=== PATIENT | male | born 1990 | race Caucasian/White ===

== ENCOUNTER 2017-02-17 11:32 | Inpatient (IN) | payer OTHER ==
[2017-02-17 12:06] VITALS: BMI 31.8
--- NOTE | 2017-02-17 16:31 | HP ---
COWS - Scale Resting Pulse: 0= [place] 80 or Below Sweatin= Chills/Flushing Restless Observation: 3= Extraneous Movement Pupil Size: 0= Normal to Room Light Bone or Joint Aches: 2= Severe Diffuse Aches Runny Nose/ Eye Tearin= Runny Nose/Eyes GI Upset > 30mins: 1= Stomach Cramp Tremor Observation: 2= Slight Tremor Visible Yawning Observation: 0= None Anxiety or Irritability: 2=Irritable/Anxious Goose Flesh Skin: 0=Smooth Skin COWS Score: 13 CIWA Score - CIWA Score Nausea/Vomitin-No Nausea/No Vomiting Muscle Tremors: 4-Moderate,w/Arms Extend Anxiety: 4-Mod. Anxious/Guarded Agitation: 4-Moderately Restless Paroxysmal Sweats: 1-Minimal Palms Moist Orientation: 1-Uncertain about Date Tacttile Disturbances: 0-None Auditory Disturbances: 0-None Visual Disturbances: 0-None Headache: 0-None Present CIWA-Ar Total Score: 14 Admission ROS S - HPI Chief Complaint: withdrawal sx Allergies/Adverse Reactions: Allergies Allergy/AdvReac Type Severity Reaction Status Date / Time erythromycin base Allergy Severe Difficulty Verified 02/17/17 16:46 Breathing History of Present Illness: 27 years old male with long history of alcohol heroin nicotine dependence denies medical and mental issue is admitted to detox Exam Limitations: No Limitations - Ebola screening Have you traveled outside of the country in the last 21 days: No Have you had contact with anyone from an Ebola affected area: No Have you been sick,other than usual withdrawal symptoms: No Do you have a fever: No - Review of Systems Constitutional: Chills, Weight Stable EENT: reports: No Symptoms Reported Respiratory: reports: No Symptoms reported Cardiac: reports: No Symptoms Reported GI: reports: Poor Fluid Intake, Abdominal cramping : reports: No Symptoms Reported Musculoskeletal: reports: Back Pain, Joint Pain, Muscle Pain, Neck Pain Integumentary: reports: Change in Color (both hands) Neuro: reports: Tremors Endocrine: reports: No Symptoms Reported Hematology: reports: No Symptoms Reported Psychiatric: reports: Judgement Intact, Mood/Affect Appropiate Other Systems: Reviewed and Negative Patient History - Patient Medical History Hx Anemia: No Hx Asthma: No Hx Chronic Obstructive Pulmonary Disease (COPD): Yes Hx Cancer: No Hx Cardiac Disorders: Yes (2014) Hx Congestive Heart Failure: Yes (as per hx 1x 2 days under obs after tainted heroin intake ) Hx Hypertension: No Hx Hypercholesterolemia: No Hx Pacemaker: No HX Cerebrovascular Accident: No Hx Seizures: No Hx Dementia: No Hx Diabetes: No Hx Gastrointestinal Disorders: No Hx Liver Disease: No Hx Genitourinary Disorders: No Hx Sexually Transmitted Disorders: No Hx Renal Disease (ESRD): No Hx Thyroid Disease: No Hx Human Immunodeficiency Virus (HIV): No (LAST 09/17 EGATIVE) Hx Hepatitis C: No Hx Depression: No Hx Suicide Attempt: No Hx Bipolar Disorder: No Hx Schizophrenia: No - Patient Surgical History Past Surgical History: No Hx Neurologic Surgery: No Hx Cataract Extraction: No Hx Cardiac Surgery: No Hx Lung Surgery: No Hx Breast Surgery: No Hx Breast Biopsy: No Hx Abdominal Surgery: No Hx Appendectomy: No Hx Cholecystectomy: No Hx Genitourinary Surgery: No Hx Orthopedic Surgery: No - PPD History Previous Implant?: Yes Documented Results: Negative w/proof Implanted On Prior R Admission?: Yes Date: 02/19/16 Results: 0 MM PPD to be Administered?: Yes - Smoking Cessation Smoking history: Current every day smoker Have you smoked in the past 12 months: Yes Aproximately how many cigarettes per day: 60 Cigars Per Day: 0 Hx Chewing Tobacco Use: No Initiated information on smoking cessation: Yes 'Breaking Loose' booklet given: 02/17/17 - Substance & Tx. History Hx Alcohol Use: Yes Hx Substance Use: Yes Substance Use Type: Alcohol, Heroin, Tranquilizers Hx Substance Use Treatment: Yes (02/16-02/20/16) - Substances Abused Alcohol Route: Oral Frequency: Daily Amount used: 40ozx6+pint scotch Age of first use: 13 Date of Last Use: 02/16/17 Heroin Route: Injection Frequency: Daily Amount used: 10 bags Age of first use: 24 Date of Last Use: 02/17/17 Family Disease History - Family Disease History Family History: Denies Family Disease History: Other: Grandparent (MATERNAL GRAND FATHER-- HTN) Admission Physical Exam [facility] - Vital Signs Vital Signs: Vital Signs - 24 hr 02/17/17 12:05 Temperature 95.5 F L Pulse Rate 68 Respiratory 20 Rate Blood Pressure 144/82 - Physical General Appearance: Yes: Nourished, Appropriately Dressed, Mild Distress, Tremorous, Irritable, Sweating, Anxious HEENTM: Yes: Hearing grossly Normal, Normal ENT Inspection, Normocephalic, Normal Voice Respiratory: Yes: Chest Non-Tender, Lungs Clear, Normal Breath Sounds, No Respiratory Distress, No Accessory Muscle Use Neck: Yes: Supple, Trachea in good position Breast: Yes: Breasts Symetrical Cardiology: Yes: Regular Rhythm, Regular Rate, S1, S2 Abdominal: Yes: Normal Bowel Sounds, Non Tender, Soft Genitourinary: Yes: Within Normal Limits Back: Yes: Normal Inspection Musculoskeletal: Yes: full range of Motion, Gait Steady, Back pain, Muscle Pain Extremities: Yes: Normal Inspection (hands iv opiate), Normal Range of Motion, Non-Tender, Tremors Neurological: Yes: Alert, Motor Strength 5/5, Normal Mood/Affect, Normal Response Integumentary: Yes: Warm, Track [place] Lymphatic: Yes: Within Normal Limits - Diagnostic (1) Alcohol dependence with uncomplicated withdrawal Current Visit: Yes Status: Acute (2) Nicotine dependence Current Visit: Yes Status: Acute Qualifiers: Nicotine product type: cigarettes Substance use status: in withdrawal Qualified Code(s): F17.213 - Nicotine dependence, cigarettes, with withdrawal; F17.213 - Nicotine dependence, cigarettes, with withdrawal (3) Opioid dependence with withdrawal Current Visit: Yes Status: Acute (4) COPD (chronic obstructive pulmonary disease) Current Visit: Yes Status: Chronic Qualifiers: COPD type: emphysema Emphysema type: unilateral Qualified Code(s ): J43.0 - Unilateral pulmonary emphysema [MacLeod's syndrome]; J43.0 - Unilateral pulmonary emphysema [MacLeod's syndrome]; J43.0 - Unilateral pulmonary emphysema [MacLeod's syndrome]; J43.0 - Unilateral pulmonary emphysema [MacLeod's syndrome] Cleared for Admission [facility] - Detox or Rehab S Level of Care: Medically Managed Detox Regimen/Protocol: Methadone/Librium S Breath Alcohol Content Breath Alcohol Content: 0 Urine Drug Screen - Results Drug Screen Negative: No Urine Drug Screen Results: OPI-Opiates, BZO-Benzodiazepines
[2017-02-17] MEDS ORDERED: chlordiazePOXIDE HCL 25 MG CAPSULE PO PRN (16:38)
[2017-02-17] MEDS ORDERED: MAGNESIUM HYDROX 2400MG/30ML ORAL SUSPENSION 30 ML CUP PO PRN (16:38)
[2017-02-17] MEDS ORDERED: diphenhydrAMINE HCL 50 MG CAPSULE PO PRN (16:38)
[2017-02-17] MEDS ORDERED: P-EPHED 60MG/TRIPROLIDI 2.5MG TABLET PO PRN (16:38)
[2017-02-17] MEDS ORDERED: MAGNESIUM CITRATE 300 ML BOTTLE PO PRN (16:38)
[2017-02-17] MEDS ORDERED: guaiFENesin/D-METHORPHAN HB 10 ML UNIT-DOSE CUPS PO PRN (16:38)
[2017-02-17] MEDS ORDERED: IBUPROFEN 400 MG TABLET (FP) PO PRN (16:38)
[2017-02-17] MEDS ORDERED: MAG HYDROX/AL HYDROX/SIMETH 30 ML UNIT-DOSE CUP PO PRN (16:38)
[2017-02-17] MEDS ORDERED: METHADONE HCL 10 MG TABLET (FOR DETOX USE ONLY) PO ONE ×2 (16:38→23:00)
[2017-02-17] MEDS ORDERED: ACETAMINOPHEN 325 MG TABLET (FP) PO PRN (16:38)
[2017-02-17] MEDS ORDERED: LOPERAMIDE HCL 2 MG CAPSULE PO PRN (16:38)
[2017-02-17] MEDS ORDERED: MENTHOL/PHENOL 1 EACH UD MM PRN (16:38)
[2017-02-17] MEDS ORDERED: NICOTINE POLACRILEX 4 MG GUM BC PRN (16:38)
[2017-02-17] MEDS ORDERED: cloNIDine HCL 0.1 MG TABLET PO PRN (16:40)
[2017-02-17] MEDS ORDERED: METHADONE HCL 10 MG TABLET (FOR DETOX USE ONLY) ONE (20:26)
[2017-02-17] MEDS ORDERED: THIAMINE HCL 100 MG TABLET (FP) PO SCH (22:00)
[2017-02-17] MEDS: chlordiazePOXIDE HCL 25 MG CAPSULE PO SCH (22:38)
[2017-02-18 01:59] LABS: URINE APPEARANCE CLEAR; URINE BILIRUBIN NEGATIVE (NEGATIVE); URINE BLOOD NEGATIVE (NEGATIVE); URINE COLOR YELLOW; URINE GLUCOSE (UA) NEGATIVE (NEGATIVE); URINE KETONE NEGATIVE (NEGATIVE); URINE NITRITE NEGATIVE (NEGATIVE); URINE PROTEIN NEGATIVE (NEGATIVE); URINE UROBILINOGEN NEGATIVE mg/dL (0.2-1.0)
[2017-02-18] MEDS: chlordiazePOXIDE HCL 25 MG CAPSULE PO SCH ×3 (05:20→18:02)
[2017-02-18 09:07] LABS: URINE LEUK ESTERASE Negative (NEGATIVE)
[2017-02-18 09:58] LABS: MCH 29.5 pg (25.7-33.7); MCHC 33.6 g/dl (32.0-35.9); MEAN CELL VOLUME 87.8 fl (80-96); MEAN PLT VOLUME 10.1 fl (7.5-11.1); PLATELET COUNT 142 K/MM3 (134-434); RDW 13.3 % (11.9-15.9); WHITE BLOOD COUNT 6.4 K/mm3 (4.0-10.0)
[2017-02-18] MEDS ORDERED: NICOTINE 21 MG/24 HOURS TOPICAL PATCH TD SCH (10:00)
[2017-02-18] MEDS ORDERED: METHADONE HCL 10 MG TABLET (FOR DETOX USE ONLY) PO SCH (10:00)
[2017-02-18] MEDS ORDERED: PRENATAL VITAMINS W/ FOLIC ACID TABLET (FP) PO SCH (10:00)
[2017-02-18 10:01] LABS: ALBUMIN 3.6 g/dl (3.4-5.0); ALK PHOS 61 U/L (45-117); ANION GAP 7 (8-16); BILIRUBIN,TOTAL 0.4 mg/dL (0.2-1.0); CALCIUM 8.4 mg/dL (8.5-10.1); CO2 31 mmol/L (21-32); CREATININE 0.8 mg/dL (0.7-1.3); GLUCOSE,RANDOM 86 mg/dL (74-106); SGOT/AST 10 U/L (15-37); SGPT/ALT 27 U/L (12-78); TOT PROT 6.7 g/dl (6.4-8.2)
--- NOTE | 2017-02-18 12:30 | PN ---
[facility] CIWA - CIWA Score Nausea/Vomitin Muscle Tremors: 3 Anxiety: 4-Mod. Anxious/Guarded Agitation: 2 Paroxysmal Sweats: 3 Orientation: 0-Oriented Tacttile Disturbances: 2-Mild Itch/Numbness/Burn Auditory Disturbances: 0-None Visual Disturbances: 0-None Headache: 0-None Present CIWA-Ar Total Score: 16 [facility] COWS - Scale Resting Pulse: 1= [place] 81-100 Sweatin= Chills/Flushing Restless Observation: 1= Difficult to Sit Still Pupil Size: 0= Normal to Room Light Bone or Joint Aches: 2= Severe Diffuse Aches Runny Nose/ Eye Tearin= Nasal Congestion GI Upset > 30mins: 1= Stomach Cramp Tremor Observation of Outstretched Hands: 2= Slight Tremor Visible Yawning Observation: 1= 1-2x During Session Anxiety or Irritability: 2=Irritable/Anxious Goose Flesh Skin: 3=Piloerection COWS Score: 15 S Progress Note (SOAP) Subjective: Tremors, Sweating, Stomach Cramping, Anxious. Objective: PT. A & O X 3, OBSERVED AMBULATING ON UNIT. NO ACUTE DISTRESS. 02/18/17 12:31 Vital Signs Temperature 95.5 F L 02/18/17 09:07 Pulse Rate 81 02/18/17 09:07 Respiratory Rate 18 02/18/17 09:07 Blood Pressure 143/79 02/18/17 09:07 O2 Sat by Pulse Oximetry (%) Laboratory Tests 02/17/17 02/18/17 02/18/17 22:37 07:00 07:00 WBC 6.4 RBC 4.89 Hgb 14.4 Hct 42.9 MCV 87.8 MCH 29.5 MCHC 33.6 RDW 13.3 Plt Count 142 MPV 10.1 D Sodium 143 Potassium 4.2 Chloride 105 Carbon Dioxide 31 D Anion Gap 7 L BUN 14 Creatinine 0.8 Creat Clearance w eGFR > 60 Random Glucose 86 D Calcium 8.4 L Total Bilirubin 0.4 AST 10 L D ALT 27 Alkaline Phosphatase 61 Total Protein 6.7 Albumin 3.6 Urine Color Yellow Urine Appearance Clear Urine pH 5.0 Ur Specific [place] 1.025 Urine Protein Negative Urine Glucose (UA) Negative Urine Ketones Negative Urine Blood Negative Urine Nitrite Negative Urine Bilirubin Negative Urine Urobilinogen Negative Ur Leukocyte Esterase Negative RPR Titer 10/17/17 07:00 WBC RBC Hgb Hct MCV MCH MCHC RDW Plt Count MPV Sodium Potassium Chloride Carbon Dioxide Anion Gap BUN Creatinine Creat Clearance w eGFR Random Glucose Calcium Total Bilirubin AST ALT Alkaline Phosphatase Total Protein Albumin Urine Color Urine Appearance Urine pH Ur Specific [place] Urine Protein Urine Glucose (UA) Urine Ketones Urine Blood Urine Nitrite Urine Bilirubin Urine Urobilinogen Ur Leukocyte Esterase RPR Titer Nonreactive LABS NOTED. HCV AB RESULT PENDING. 02/18/17 12:32 Assessment: 02/18/17 12:31 WITHDRAWAL SYMPTOMS. Plan: CONTINUE DETOX.
[2017-02-18 17:28] VITALS: BP 140/83; PULSE 87; TEMP 97.2
[2017-02-18] MEDS ORDERED: chlordiazePOXIDE HCL 25 MG CAPSULE PO SCH (23:00)
[2017-02-19] MEDS ORDERED: METHADONE HCL 5 MG TABLET (FOR DETOX USE ONLY) PO SCH (10:00)
--- NOTE | 2017-02-19 11:57 | EKG ---
Test Reason : Blood Pressure : / mmHG Vent. Rate : 070 BPM Atrial Rate : 070 BPM P-R Int : 160 ms QRS Dur : 086 ms QT Int : 368 ms P-R-T Axes : 044 063 037 degrees QTc Int : 397 ms NORMAL SINUS RHYTHM NORMAL ECG WHEN COMPARED WITH ECG OF 17-FEB-2017 20:37, NO SIGNIFICANT CHANGE WAS FOUND Confirmed by FELIPA PARKER MD ([id number]) on 02/19/2017 11:57:00 AM Referred By: Confirmed By:FELIPA PARKER MD
--- NOTE | 2017-02-19 12:00 | EKG ---
Test Reason : Blood Pressure : / mmHG Vent. Rate : 070 BPM Atrial Rate : 070 BPM P-R Int : 162 ms QRS Dur : 086 ms QT Int : 388 ms P-R-T Axes : 046 069 043 degrees QTc Int : 419 ms NORMAL SINUS RHYTHM WITH SINUS ARRHYTHMIA NORMAL ECG WHEN COMPARED WITH ECG OF 03-MAY-2015 11:26, NO SIGNIFICANT CHANGE WAS FOUND Confirmed by FELIPA PARKER MD ([id number]) on 02/19/2017 11:59:40 AM Referred By: Confirmed By:FELIPA PARKER MD
[2017-02-19] MEDS ORDERED: chlordiazePOXIDE 5 MG CAPSULE PO SCH (23:00)
[2017-02-20] MEDS ORDERED: chlordiazePOXIDE HCL 10 MG CAPSULE PO SCH (23:00)
[2017-02-21] MEDS ORDERED: METHADONE HCL 10 MG TABLET (FOR DETOX USE ONLY) PO SCH (10:00)
[2017-02-22] MEDS ORDERED: METHADONE HCL 5 MG TABLET (FOR DETOX USE ONLY) PO SCH (06:00)
== END 2017-02-18 18:00 | disposition left against medical advice (07) | DRG 770 ==
LOC: YASAS 11:32 → Y3N 19:29
PROVIDERS: ADMIT Internal Medicine; ATTEND Internal Medicine
PROC: HZ2ZZZZ Detoxification Services for Substance Abuse Treatment (ICD-10-PCS; principal; 2017-02-17)
DX: F11.23 Opioid dependence with withdrawal (principal); F10.230 Alcohol dependence with withdrawal, uncomplicated; F17.213 Nicotine dependence, cigarettes, with withdrawal; J43.0 Unilateral pulmonary emphysema [MacLeod's syndrome]
CPT/HCPCS: 36415; 80053; 81003; 85027; 86593; 86803; 93005; 93010

== ENCOUNTER 2017-06-07 11:04 | Inpatient (IN) | payer OTHER ==
[2017-06-07 12:05] VITALS: BMI 29.9
--- NOTE | 2017-06-07 12:58 | HP ---
Admission [facility] Chief Complaint: I've watched too many things disappear in my life because of this - I really want help to stop, I don't have the willpower to stop on my own Allergies/Adverse Reactions: Allergies Allergy/AdvReac Type Severity Reaction Status Date / Time erythromycin base Allergy Severe Difficulty Verified 06/07/17 13:20 Breathing History of Present Illness: 27 yo gentleman here for detox from opiates - history of two overdoses - never on medication assisted treatment program. No seizures. Patient has been here multiple times but leaves after one day and does not follow up with outpatient care - counseled patient regarding this - counseled to complete treatment and aftercare - patient insists he will as he knows he will . States alcohol is not his problem - drinks twice or three times a week. Exam Limitations: No Limitations - Ebola screening Have you traveled outside of the country in the last 21 days: No (N) Have you had contact with anyone from an Ebola affected area: No Have you been sick,other than usual withdrawal symptoms: No Do you have a fever: No - Review of Systems Constitutional: Loss of Appetite, Changes in sleep, Weakness EENT: reports: Blurred Vision, Nose Congestion Respiratory: reports: No Symptoms reported Cardiac: reports: No Symptoms Reported GI: reports: Constipated, Abdominal cramping : reports: No Symptoms Reported Musculoskeletal: reports: Back Pain, Muscle Pain Integumentary: reports: No Symptoms Reported Neuro: reports: Headache Hematology: reports: No Symptoms Reported Psychiatric: reports: Judgement Intact, Mood/Affect Appropiate, Orientated x3, Anxious Other Systems: Reviewed and Negative Patient History - Patient Medical History Hx Anemia: No Hx Asthma: No Hx Chronic Obstructive Pulmonary Disease (COPD): Yes Hx Cancer: No Hx Cardiac Disorders: No (chest pain/tachycardia due to 'bad heroin' one time) Hx Hypertension: No Hx Hypercholesterolemia: No Hx Pacemaker: No HX Cerebrovascular Accident: No Hx Seizures: No Hx Dementia: No Hx Diabetes: No Hx Gastrointestinal Disorders: No Hx Liver Disease: No Hx Genitourinary Disorders: No Hx Sexually Transmitted Disorders: No Hx Renal Disease (ESRD): No Hx Thyroid Disease: No Hx Human Immunodeficiency Virus (HIV): No Hx Hepatitis C: No Hx Depression: No Hx Suicide Attempt: No Hx Bipolar Disorder: No Hx Schizophrenia: No Other Medical History: history of two overdoses; 'bad' heroin causing heart to ' go crazy' - Patient Surgical History Past Surgical History: No Hx Neurologic Surgery: No Hx Cataract Extraction: No Hx Cardiac Surgery: No Hx Lung Surgery: No Hx Breast Surgery: No Hx Breast Biopsy: No Hx Abdominal Surgery: No Hx Appendectomy: No Hx Cholecystectomy: No Hx Genitourinary Surgery: No Hx Section: No Hx Orthopedic Surgery: No Anesthesia Reaction: No - PPD History Previous Implant?: Yes Documented Results: Negative w/o proof Implanted On Prior [facility] Admission?: No PPD to be Administered?: Yes - Reproductive History Patient is a Female of Child Bearing Age (11 -55 yrs old): No (male) - Smoking Cessation Smoking history: Current every day smoker Have you smoked in the past 12 months: Yes Aproximately how many cigarettes per day: 40 Cigars Per Day: 0 Hx Chewing Tobacco Use: No Initiated information on smoking cessation: Yes 'Breaking Loose' booklet given: 06/07/17 (give on floor) - Substance & Tx. History Hx Alcohol Use: No Hx Substance Use: Yes Substance Use Type: Cocaine, Heroin Hx Substance Use Treatment: Yes (detox ) - Substances Abused Heroin Route: Injection Frequency: Daily Amount used: 10 bags Age of first use: 24 Date of Last Use: 06/07/17 Cocaine Route: Injection Frequency: 1-2 times per week Amount used: 10 gm Age of first use: 15 Date of Last Use: 06/07/17 Family Disease History - Family Disease History Family Disease History: Heart Disease: Mother (ARRHYTHMIA), Other: Grandparent ( MATERNAL GRAND FATHER-- HTN) Admission Physical Exam S - Vital Signs Vital Signs: Vital Signs - 24 hr 06/07/17 12:04 Temperature 97.0 F L Pulse Rate 78 Respiratory 18 Rate Blood Pressure 143/63 - Physical General Appearance: Yes: Nourished, Appropriately Dressed, Moderate Distress, Anxious HEENTM: Yes: Hearing grossly Normal, Normocephalic, Normal Voice, Pharynx Normal Respiratory: Yes: Normal Breath Sounds, No Respiratory Distress Neck: Yes: No masses,lesions,Nodules, Supple Breast: Yes: Breast Exam Deferred Cardiology: Yes: Regular Rhythm, Regular Rate Abdominal: Yes: Flat, Soft Genitourinary: Yes: Dysuria Back: Yes: Normal Inspection Musculoskeletal: Yes: full range of Motion, Gait Steady Extremities: Yes: Normal Inspection, Non-Tender Neurological: Yes: Fully Oriented, Alert, Normal Mood/Affect, Normal Response Integumentary: Yes: Normal Color, Warm, Track Gonzales (both arms atecubital space - no abscess noted) Lymphatic: Yes: Within Normal Limits - Diagnostic (1) Opioid dependence with withdrawal Current Visit: Yes Status: Chronic (2) Cocaine dependence Current Visit: Yes Status: Acute Qualifiers: Substance use status: in withdrawal Qualified Code(s): F14.23 - Cocaine dependence with withdrawal (3) Nicotine dependence Current Visit: Yes Status: Acute Qualifiers: Nicotine product type: cigarettes Substance use status: in withdrawal Qualified Code(s): F17.213 - Nicotine dependence, cigarettes, with withdrawal (4) Substance-induced anxiety disorder Current Visit: Yes Status: Suspected Cleared for Admission [facility] - Detox or Rehab [facility] Level of Care: Medically Managed Detox Regimen/Protocol: Methadone [facility] Breath Alcohol Content Breath Alcohol Content: 0 Urine Drug Screen - Results Drug Screen Negative: No Urine Drug Screen Results: ISAAC-Cocaine, OPI-Opiates, OXY-Oxycodone
[2017-06-07] MEDS ORDERED: IBUPROFEN 400 MG TABLET (FP) PO PRN (13:21)
[2017-06-07] MEDS ORDERED: MENTHOL/PHENOL 1 EACH UD MM PRN (13:21)
[2017-06-07] MEDS ORDERED: ACETAMINOPHEN 325 MG TABLET (FP) PO PRN (13:21)
[2017-06-07] MEDS ORDERED: MAGNESIUM CITRATE 300 ML BOTTLE PO PRN (13:21)
[2017-06-07] MEDS ORDERED: MAG HYDROX/AL HYDROX/SIMETH 30 ML UNIT-DOSE CUP PO PRN (13:21)
[2017-06-07] MEDS ORDERED: hydrOXYzine PAMOATE 25 MG CAPSULE (FP) PO PRN (13:21)
[2017-06-07] MEDS ORDERED: NICOTINE POLACRILEX 2 MG GUM BUC PRN (13:21)
[2017-06-07] MEDS ORDERED: LOPERAMIDE HCL 2 MG CAPSULE PO PRN (13:21)
[2017-06-07] MEDS ORDERED: guaiFENesin/D-METHORPHAN HB 10 ML UNIT-DOSE CUPS PO PRN (13:21)
[2017-06-07] MEDS ORDERED: P-EPHED 60MG/TRIPROLIDI 2.5MG TABLET PO PRN (13:21)
[2017-06-07] MEDS ORDERED: MAGNESIUM HYDROX 2400MG/30ML ORAL SUSPENSION 30 ML CUP PO PRN (13:21)
[2017-06-07] MEDS ORDERED: METHADONE HCL 10 MG TABLET (FOR DETOX USE ONLY) PO ONE ×2 (15:00→23:00)
[2017-06-07] MEDS: diazePAM 5 MG TABLET PO PRN ×2 (15:11→22:10)
[2017-06-07 18:29] LABS: URINE APPEARANCE CLEAR; URINE BILIRUBIN NEGATIVE (NEGATIVE); URINE BLOOD NEGATIVE (NEGATIVE); URINE COLOR YELLOW; URINE GLUCOSE (UA) NEGATIVE (NEGATIVE); URINE KETONE NEGATIVE (NEGATIVE); URINE LEUK ESTERASE NEGATIVE (NEGATIVE); URINE NITRITE NEGATIVE (NEGATIVE); URINE PROTEIN NEGATIVE (NEGATIVE); URINE UROBILINOGEN NEGATIVE mg/dL (0.2-1.0)
[2017-06-07] MEDS ORDERED: THIAMINE HCL 100 MG TABLET (FP) PO SCH (22:00)
[2017-06-08 09:39] VITALS: BP 140/82; PULSE 74; TEMP 97.6
[2017-06-08] MEDS ORDERED: METHADONE HCL 10 MG TABLET (FOR DETOX USE ONLY) PO ONE (10:00)
[2017-06-08] MEDS ORDERED: PRENATAL VITAMINS W/ FOLIC ACID TABLET (FP) PO SCH (10:00)
[2017-06-08] MEDS: diazePAM 5 MG TABLET PO PRN (10:03)
[2017-06-08 10:11] LABS: ALBUMIN 3.6 g/dl (3.4-5.0); ALK PHOS 72 U/L (45-117); ANION GAP 5 (8-16); BILIRUBIN,TOTAL 0.2 mg/dL (0.2-1.0); BLOOD UREA NITROGEN 12 mg/dL (7-18); CALCIUM 8.1 mg/dL (8.5-10.1); CHLORIDE 109 mmol/L (98-107); CO2 28 mmol/L (21-32); CREATININE 0.7 mg/dL (0.7-1.3); GLUCOSE,RANDOM 96 mg/dL (74-106); POTASSIUM 4.2 mmol/L (3.5-5.1); SGOT/AST 9 U/L (15-37); SGPT/ALT 18 U/L (12-78); SODIUM 142 mmol/L (136-145); TOT PROT 6.3 g/dl (6.4-8.2)
[2017-06-08 10:18] LABS: HEMATOCRIT 42.9 % (35.4-49); HEMOGLOBIN 14.2 GM/dL (11.7-16.9); MEAN CELL VOLUME 87.8 fl (80-96); MEAN PLT VOLUME 10.2 fl (7.5-11.1); PLATELET COUNT 172 K/MM3 (134-434); RBC 4.88 M/mm3 (4.00-5.60); RDW 12.6 % (11.9-15.9); WHITE BLOOD COUNT 5.5 K/mm3 (4.0-10.0)
--- NOTE | 2017-06-08 12:57 | DS ---
[facility] Detox Discharge Summary Admission Date: 06/07/17 Discharge Date: 06/08/17 - History Present History: Cocaine Dependence, Opioid Dependence Additional Comments: PATIENT DOES NOT WISH TO STAY TO COMPLETE DETOX REGIMEN. RISKS OF LEAVING AGAINST MEDICAL ADVICE AND PRIOR TO COMPLETION OF DETOX REGIMEN EXPLAINED TO PATIENT. PATIENT ADVISED TO GO IMMEDIATELY TO NEAREST ER SHOULD ANY INTOLERABLE DETOX SYMPTOMS DEVELOP AT ANY TIME. PATIENT LEFT DETOX UNIT IN STABLE MEDICAL CONDITION. Pertinent Past History: Nicotine Dependence, COPD. - Physical Exam Results Vital Signs: Vital Signs Temperature 97.6 F 06/08/17 09:38 Pulse Rate 74 06/08/17 09:38 Respiratory Rate 20 06/08/17 09:38 Blood Pressure 140/82 06/08/17 09:38 O2 Sat by Pulse Oximetry (%) Pertinent Admission Physical Exam Findings: WITHDRAWAL SYMPTOMS. Laboratory Tests 06/07/17 06/08/17 06/08/17 11:15 07:40 07:40 WBC 5.5 RBC 4.88 Hgb 14.2 Hct 42.9 MCV 87.8 MCH 29.0 MCHC 33.0 RDW 12.6 Plt Count 172 D MPV 10.2 Sodium 142 Potassium 4.2 Chloride 109 H Carbon Dioxide 28 Anion Gap 5 L BUN 12 Creatinine 0.7 Creat Clearance w eGFR > 60 Random Glucose 96 Calcium 8.1 L Total Bilirubin 0.2 D AST 9 L ALT 18 D Alkaline Phosphatase 72 Total Protein 6.3 L Albumin 3.6 Urine Color Yellow Urine Appearance Clear Urine pH 5.0 Ur Specific [place] 1.018 Urine Protein Negative Urine Glucose (UA) Negative Urine Ketones Negative Urine Blood Negative Urine Nitrite Negative Urine Bilirubin Negative Urine Urobilinogen Negative Ur Leukocyte Esterase Negative RPR Titer HIV 1&2 Antibody Screen HIV P24 Antigen 06/08/17 06/08/17 07:40 07:40 WBC RBC Hgb Hct MCV MCH MCHC RDW Plt Count MPV Sodium Potassium Chloride Carbon Dioxide Anion Gap BUN Creatinine Creat Clearance w eGFR Random Glucose Calcium Total Bilirubin AST ALT Alkaline Phosphatase Total Protein Albumin Urine Color Urine Appearance Urine pH Ur Specific [place] Urine Protein Urine Glucose (UA) Urine Ketones Urine Blood Urine Nitrite Urine Bilirubin Urine Urobilinogen Ur Leukocyte Esterase RPR Titer Nonreactive HIV 1&2 Antibody Screen Negative HIV P24 Antigen Negative LABS NOTED. - Treatment Hospital Course: Detoxed Safely - Medication Discharge Medications: Ambulatory Orders NK [No Known Home Medication] 12/08/15 - Diagnosis (1) Cocaine dependence Current Visit: Yes Status: Acute Qualifiers: Substance use status: in withdrawal Qualified Code(s): F14.23 - Cocaine dependence with withdrawal (2) Nicotine dependence Current Visit: Yes Status: Acute Qualifiers: Nicotine product type: cigarettes Substance use status: in withdrawal Qualified Code(s): F17.213 - Nicotine dependence, cigarettes, with withdrawal (3) Opioid dependence with withdrawal Current Visit: Yes Status: Acute (4) Substance-induced anxiety disorder Current Visit: Yes Status: Suspected - AMA Did Patient Leave Against Medical Advice: Yes (PATIENT DID NOT WISH TO STAY TO COMPLETE DETOX REGIMEN.)
--- NOTE | 2017-06-08 13:14 | EKG ---
Test Reason : Blood Pressure : / mmHG Vent. Rate : 066 BPM Atrial Rate : 066 BPM P-R Int : 150 ms QRS Dur : 090 ms QT Int : 398 ms P-R-T Axes : 003 074 042 degrees QTc Int : 417 ms NORMAL SINUS RHYTHM NORMAL ECG WHEN COMPARED WITH ECG OF 18-FEB-2017 15:31, NO SIGNIFICANT CHANGE WAS FOUND BASELINE ARTIFACT Confirmed by ALVARO FORD MD ([id number]) on 06/08/2017 1:14:22 PM Referred By: Confirmed By:ALVARO FORD MD
[2017-06-09] MEDS ORDERED: METHADONE HCL 5 MG TABLET (FOR DETOX USE ONLY) PO ONE (10:00)
[2017-06-10] MEDS ORDERED: METHADONE HCL 5 MG TABLET (FOR DETOX USE ONLY) PO ONE (10:00)
[2017-06-11] MEDS ORDERED: METHADONE HCL 10 MG TABLET (FOR DETOX USE ONLY) PO ONE (10:00)
[2017-06-12] MEDS ORDERED: METHADONE HCL 5 MG TABLET (FOR DETOX USE ONLY) PO ONE (06:00)
== END 2017-06-08 12:05 | disposition left against medical advice (07) | DRG 770 ==
LOC: YASAS 11:04 → Y3N 13:41
PROVIDERS: ADMIT Internal Medicine; ATTEND Internal Medicine
PROC: HZ2ZZZZ Detoxification Services for Substance Abuse Treatment (ICD-10-PCS; principal; 2017-06-07)
DX: F11.23 Opioid dependence with withdrawal (principal); F14.23 Cocaine dependence with withdrawal; F19.280 Other psychoactive substance dependence with psychoactive substance-induced anxiety disorder; F17.213 Nicotine dependence, cigarettes, with withdrawal
CPT/HCPCS: 36415; 80053; 81003; 85027; 86593; 87389; 93005; 93010

== ENCOUNTER 2017-10-15 01:29 | Inpatient (IN) | payer OTHER ==
--- NOTE | 2017-10-15 01:51 | HP ---
COWS - Scale Resting Pulse: 1= [place] 81-100 Sweatin= No chills or Flushing Restless Observation: 3= Extraneous Movement Pupil Size: 1= Pupils >than Normal Bone or Joint Aches: 0= None Runny Nose/ Eye Tearin= Runny Nose/Eyes GI Upset > 30mins: 0= None Tremor Observation: 1= Tremor [place], Not Seen Yawning Observation: 0= None Anxiety or Irritability: 4=Extreme Anxiety Goose Flesh Skin: 0=Smooth Skin COWS Score: 12 CIWA Score - CIWA Score Nausea/Vomitin-No Nausea/No Vomiting Muscle Tremors: 1-None Visible, but [place] Anxiety: 4-Mod. Anxious/Guarded Agitation: 4-Moderately Restless Paroxysmal Sweats: No Perspiration Orientation: 3-Disoriented Date>2 days Tacttile Disturbances: 0-None Auditory Disturbances: 0-None Visual Disturbances: 0-None Headache: 0-None Present CIWA-Ar Total Score: 12 Admission ROS BHS - HPI Chief Complaint: C/O WITHDRAWAL SX'S. SEEKING DETOX FROM ALCOHOL AND HEROIN Allergies/Adverse Reactions: Allergies Allergy/AdvReac Type Severity Reaction Status Date / Time erythromycin base Allergy Severe Difficulty Verified 10/15/17 01:46 Breathing History of Present Illness: 27 Y.O. MALE WITH HX/O ALCOHOLISM AND OPIOID DEPENDENCE ADMITTED FOR DETOX. CLIENT IS SELF REFERRED. KNOWN TO THIS PROGRAM. LAST HERE 06/2017 WHERE HE SIGNED OUT IN LESS THAN 24 HOURS. D/W CLIENT ABOUT COMPLIANCE AND COMPLETION. CLIENT VERBALIZED UNDERSTANDING. REPORTS LONGEST CLEAN TIME 8 MONTHS. REPORTS 1 OVERDOSE. DENIES HX/O SEIZURES AND SI/HI. Exam Limitations: No Limitations - Ebola screening Have you traveled outside of the country in the last 21 days: No Have you had contact with anyone from an Ebola affected area: No Have you been sick,other than usual withdrawal symptoms: No Do you have a fever: No - Review of Systems Constitutional: Night Sweats, Changes in sleep, Unintentional Wgt. Loss EENT: reports: Other (RUNNY NOSE) Respiratory: reports: No Symptoms reported Cardiac: reports: No Symptoms Reported GI: reports: No Symptoms Reported : reports: No Symptoms Reported Musculoskeletal: reports: No Symptoms Reported Integumentary: reports: No Symptoms Reported Neuro: reports: No Symptoms reported Endocrine: reports: No Symptoms Reported Hematology: reports: No Symptoms Reported Psychiatric: reports: Anxious Other Systems: Reviewed and Negative Patient History - Patient Medical History Hx Anemia: No Hx Asthma: No Hx Chronic Obstructive Pulmonary Disease (COPD): No Hx Cancer: No Hx Cardiac Disorders: No (chest pain/tachycardia due to 'bad heroin' one time) Hx Congestive Heart Failure: No (as per hx 1x 2 days under obs after tainted heroin intake ) Hx Hypertension: No Hx Hypercholesterolemia: No Hx Pacemaker: No HX Cerebrovascular Accident: No Hx Seizures: No Hx Dementia: No Hx Diabetes: No Hx Gastrointestinal Disorders: No Hx Liver Disease: No Hx Genitourinary Disorders: No Hx Sexually Transmitted Disorders: No Hx Renal Disease (ESRD): No Hx Thyroid Disease: No Hx Human Immunodeficiency Virus (HIV): No Hx Hepatitis C: No Hx Depression: No Hx Suicide Attempt: No Hx Bipolar Disorder: No Hx Schizophrenia: No Other Medical History: ANXIETY - Patient Surgical History Past Surgical History: No Hx Neurologic Surgery: No Hx Cataract Extraction: No Hx Cardiac Surgery: No Hx Lung Surgery: No Hx Breast Surgery: No Hx Breast Biopsy: No Hx Abdominal Surgery: No Hx Appendectomy: No Hx Cholecystectomy: No Hx Genitourinary Surgery: No Hx Section: No Hx Orthopedic Surgery: No Anesthesia Reaction: No - PPD History Previous Implant?: Yes Documented Results: Negative w/proof Implanted On Prior [facility] Admission?: Yes Date: 02/19/17 Results: AMA PPD to be Administered?: No - Smoking Cessation Smoking history: Current every day smoker Have you smoked in the past 12 months: Yes Aproximately how many cigarettes per day: 40 Cigars Per Day: 0 Hx Chewing Tobacco Use: No Initiated information on smoking cessation: Yes 'Breaking Loose' booklet given: 10/15/17 - Substance & Tx. History Hx Alcohol Use: Yes Hx Substance Use: Yes Substance Use Type: Alcohol, Cocaine, Heroin Hx Substance Use Treatment: Yes ([facility]) - Substances Abused HEROIN Route: Injection Frequency: Daily Amount used: 4 BAGS Age of first use: 24 Date of Last Use: 10/14/17 LIQUOR Route: Oral Frequency: 3-6 times per week Amount used: 2 LITERS Age of first use: 12 Date of Last Use: 10/14/17 COCAINE Route: Injection Frequency: 1-3 times last 30 days Amount used: 1/2 GM Age of first use: 14 Date of Last Use: 10/14/17 Family Disease History - Family Disease History Family Disease History: Heart Disease: Mother (ARRHYTHMIA), Other: Grandparent ( MATERNAL GRAND FATHER-- HTN) Admission Physical Exam [facility] - Physical General Appearance: Yes: Appropriately Dressed, Alcohol on Breath, Anxious HEENTM: Yes: EOMI, Normocephalic, Normal Voice, RAJANI, Pharynx Normal, Rhinorrhea Respiratory: Yes: Chest Non-Tender, Lungs Clear, Normal Breath Sounds, No Respiratory Distress, No Accessory Muscle Use Neck: Yes: No masses,lesions,Nodules, Supple, Trachea in good position Breast: Yes: Breast Exam Deferred Cardiology: Yes: Regular Rhythm, S1, S2, Tachycardia Abdominal: Yes: Normal Bowel Sounds, Non Tender, Soft Genitourinary: Yes: Within Normal Limits Back: Yes: Normal Inspection Musculoskeletal: Yes: full range of Motion, Gait Steady Extremities: Yes: Normal Range of Motion, Non-Tender 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, Alert, Motor Strength 5/5 Integumentary: Yes: Cold (COOLL), Clammy, Other (FLUSHED) Lymphatic: Yes: Within Normal Limits - Diagnostic (1) Alcohol dependence with uncomplicated withdrawal Current Visit: Yes Status: Acute (2) Cocaine dependence Current Visit: Yes Status: Chronic Qualifiers: Substance use status: in withdrawal Qualified Code(s): F14.23 - Cocaine dependence with withdrawal (3) Nicotine dependence Current Visit: Yes Status: Chronic Qualifiers: Nicotine product type: cigarettes Substance use status: in withdrawal Qualified Code(s): F17.213 - Nicotine dependence, cigarettes, with withdrawal (4) Opioid dependence with withdrawal Current Visit: Yes Status: Acute (5) Substance-induced anxiety disorder Current Visit: Yes Status: Suspected Cleared for Admission [facility] - Detox or Rehab [facility] Level of Care: Medically Managed Detox Regimen/Protocol: Methadone/Librium [facility] Breath Alcohol Content Breath Alcohol Content: 0.038 Vital Signs - Vital Signs Vital Signs Refused: No Temperature: 97.6 F Temperature Source: Oral Pulse Rate: 101 Respiratory Rate: 18 Blood Pressure: 118/75 BP Location: Left Arm Blood Pressure Position: Sitting - Height Height: 5 ft 9 in - Weight Weight: 89.811 kg Weight Measurement Method: Standing Scale Body Mass Index (BMI): 29.2 - Bowel Function Bowel Movement: No Urine Drug Screen - Test Device Lot Number: [id number] Expiration Date: 07/02/19 - Control Is Test Valid: Yes - Results Drug Screen Negative: No Urine Drug Screen Results: ISAAC-Cocaine, OPI-Opiates
[2017-10-15] MEDS ORDERED: MENTHOL/PHENOL 1 EACH UD MM PRN (02:07)
[2017-10-15] MEDS ORDERED: IBUPROFEN 400 MG TABLET (FP) PO PRN (02:07)
[2017-10-15] MEDS ORDERED: MAGNESIUM HYDROX 2400MG/30ML ORAL SUSPENSION 30 ML CUP PO PRN (02:07)
[2017-10-15] MEDS ORDERED: LOPERAMIDE HCL 2 MG CAPSULE PO PRN (02:07)
[2017-10-15] MEDS ORDERED: P-EPHED 60MG/TRIPROLIDI 2.5MG TABLET PO PRN (02:07)
[2017-10-15] MEDS ORDERED: guaiFENesin/D-METHORPHAN HB 10 ML UNIT-DOSE CUPS PO PRN (02:07)
[2017-10-15] MEDS ORDERED: ACETAMINOPHEN 325 MG TABLET (FP) PO PRN (02:07)
[2017-10-15] MEDS ORDERED: METHADONE HCL 10 MG TABLET (FOR DETOX USE ONLY) PO ONE ×3 (02:07→22:00)
[2017-10-15] MEDS ORDERED: chlordiazePOXIDE HCL 25 MG CAPSULE PO PRN (02:07)
[2017-10-15] MEDS ORDERED: hydrOXYzine PAMOATE 50 MG CAPSULE (FP) PO PRN (02:07)
[2017-10-15] MEDS ORDERED: NICOTINE POLACRILEX 4 MG GUM BC PRN (02:07)
[2017-10-15] MEDS ORDERED: MAGNESIUM CITRATE 300 ML BOTTLE PO PRN (02:07)
[2017-10-15 02:11] VITALS: BMI 29.2
[2017-10-15] MEDS: chlordiazePOXIDE HCL 25 MG CAPSULE PO SCH ×4 (08:00→22:15)
--- NOTE | 2017-10-15 09:38 | EKG ---
Test Reason : Blood Pressure : / mmHG Vent. Rate : 082 BPM Atrial Rate : 082 BPM P-R Int : 152 ms QRS Dur : 086 ms QT Int : 374 ms P-R-T Axes : 067 067 046 degrees QTc Int : 436 ms NORMAL SINUS RHYTHM NORMAL ECG WHEN COMPARED WITH ECG OF 07-JUN-2017 14:55, NO SIGNIFICANT CHANGE WAS FOUND Confirmed by FELIPA PARKER MD ([id number]) on 10/15/2017 9:38:25 AM Referred By: Confirmed By:FELIPA PARKER MD
[2017-10-15] MEDS: PRENATAL VITAMINS W/ FOLIC ACID TABLET (FP) PO SCH (10:16)
[2017-10-15] MEDS: NICOTINE 21 MG/24 HOURS TOPICAL PATCH TD SCH (10:16)
--- NOTE | 2017-10-15 10:58 | PN ---
S Progress Note Note: PT WAS ADMITTED EARLIER THIS MORNING. ALERT O X 3. NAD. Vital Signs 10/15/17 10/15/17 10/15/17 03:20 06:30 06:41 Temperature 97.0 F L 97.9 F Pulse Rate 50 L 80 Respiratory 18 18 18 Rate Blood Pressure 112/75 101/55 10/15/17 09:21 Temperature 96.9 F L Pulse Rate 90 Respiratory 20 Rate Blood Pressure 110/82 LABS PENDING CONTINUE DETOX
--- NOTE | 2017-10-15 11:44 | CONSULT ---
[facility] Psychiatric Consult - Data Date of interview: 10/15/17 Admission source: [facility] Identifying data: Another admission to [facility] for this 27 y/o male from [place] ancestry seeking detox treatment on for alcohol,cocaine and heroin dependence.Patient is single without children,domiciled,currently unemployed and supported by relatives. Substance Abuse History: Confirmed by patient in this interview.Smoking history : Current every day smoker. Have you smoked in the past 12 months: Yes. Aproximately how many cigarettes per day: 40. Cigars Per Day: 0. Hx Chewing Tobacco Use: No. Initiated information on smoking cessation: Yes. 'Breaking Loose' booklet given: 10/15/17. - Substance & Tx. History. Hx Alcohol Use: Yes. Hx Substance Use: Yes. Substance Use Type: Alcohol, Cocaine, Heroin. Hx Substance Use Treatment: Yes ([facility]). - Substances Abused. HEROIN. Route: Injection. Frequency: Daily. Amount used: 4 BAGS. Age of first use: 24. Date of Last Use: 10/14/17. LIQUOR. Route: Oral. Frequency: 3-6 times per week. Amount used: 2 LITERS. Age of first use: 12. Date of Last Use: . COCAINE. Route: Injection. Frequency: 1-3 times last 30 days. Amount used: 1/2 GM. Age of first use: 14. Date of Last Use: 10/14/17 Medical History: Antecedent of a heart attack (three years ago) and bronchial asthma. Psychiatric History: Patient denies. Physical/Sexual Abuse/Trauma History: Patient denies. Additional Comment: Urine Drug Screen Results: ISAAC-Cocaine, OPI-Opiates.Noted. Mental Status Exam - Mental Status Exam Alert and Oriented to: Time, Place, Person Cognitive Function: Good Patient Appearance: Well Groomed Mood: Anxious, Hopeful Affect: Appropriate, Normal Range Patient Behavior: Fatigued, Cooperative Speech Pattern: Clear, Appropriate Voice Loudness: Normal Thought Process: Intact, Goal Oriented Thought Disorder: Not Present Hallucinations: Denies Suicidal Ideation: Denies Homicidal Ideation: Denies Insight/Judgement: Poor Sleep: Well Appetite: Good Muscle strength/Tone: Normal Gait/Station: Normal Psychiatric Findings - Problem List (Laura 1, 2,3) (1) Alcohol dependence with uncomplicated withdrawal Current Visit: Yes Status: Acute (2) Opioid dependence with withdrawal Current Visit: Yes Status: Acute (3) Cocaine dependence Current Visit: Yes Status: Acute Qualifiers: Substance use status: in withdrawal Qualified Code(s): F14.23 - Cocaine dependence with withdrawal (4) Nicotine dependence Current Visit: Yes Status: Acute Qualifiers: Nicotine product type: cigarettes Substance use status: in withdrawal Qualified Code(s): F17.213 - Nicotine dependence, cigarettes, with withdrawal - Initial Treatment Plan Initial Treatment Plan: Psychoeducation and support.Detoxification in progress.Observation.
[2017-10-15] MEDS ORDERED: THIAMINE HCL 100 MG TABLET (FP) PO SCH (22:00)
[2017-10-15] MEDS ORDERED: MELATONIN 5 MG TABLETS PO PRN (22:00)
[2017-10-15] MEDS: MAG HYDROX/AL HYDROX/SIMETH 30 ML UNIT-DOSE CUP PO PRN (22:17)
[2017-10-16] MEDS: chlordiazePOXIDE HCL 25 MG CAPSULE PO SCH ×3 (09:46→17:34)
[2017-10-16] MEDS ORDERED: METHADONE HCL 5 MG TABLET (FOR DETOX USE ONLY) PO SCH (10:00)
[2017-10-16] MEDS: NICOTINE 21 MG/24 HOURS TOPICAL PATCH TD SCH (10:15)
[2017-10-16] MEDS: PRENATAL VITAMINS W/ FOLIC ACID TABLET (FP) PO SCH (10:15)
[2017-10-16 10:25] LABS: HEMATOCRIT 44.4 % (35.4-49); HEMOGLOBIN 15.1 GM/dL (11.7-16.9); MCH 29.5 pg (25.7-33.7); MEAN CELL VOLUME 86.7 fl (80-96); MEAN PLT VOLUME 11.2 fl (7.5-11.1); PLATELET COUNT 199 K/MM3 (134-434); RBC 5.12 M/mm3 (4.00-5.60); RDW 14.7 % (11.9-15.9); WHITE BLOOD COUNT 8.1 K/mm3 (4.0-10.0)
--- NOTE | 2017-10-16 11:04 | PN ---
[facility] CIWA - CIWA Score Nausea/Vomitin-No Nausea/No Vomiting Muscle Tremors: 4-Moderate,w/Arms Extend Anxiety: 4-Mod. Anxious/Guarded Agitation: 3 Paroxysmal Sweats: 1-Minimal Palms Moist Orientation: 0-Oriented Tacttile Disturbances: 0-None Auditory Disturbances: 0-None Visual Disturbances: 0-None Headache: 0-None Present CIWA-Ar Total Score: 12 S COWS - Scale Resting Pulse: 1= [place] 81-100 Sweatin= Chills/Flushing Restless Observation: 3= Extraneous Movement Pupil Size: 2= Moderately Dilated Bone or Joint Aches: 1= Mild Discomfort Runny Nose/ Eye Tearin= None GI Upset > 30mins: 0= None Tremor Observation of Outstretched Hands: 2= Slight Tremor Visible Yawning Observation: 0= None Anxiety or Irritability: 1=Feels Anxious/Irritable Goose Flesh Skin: 0=Smooth Skin COWS Score: 11 S Progress Note (SOAP) Subjective: ALERT O X 3. READING IN BED AND REPORTS MEDS ADEQUATE FOR WITHDRAWAL SX. Objective: 10/16/17 11:03 Vital Signs 10/16/17 09:19 Temperature 98.1 F Pulse Rate 83 Respiratory 18 Rate Blood Pressure 118/74 Laboratory Tests 10/16/17 08:50 WBC 8.1 D RBC 5.12 Hgb 15.1 Hct 44.4 MCV 86.7 MCH 29.5 MCHC 34.0 RDW 14.7 D OTHER LABS PENDING Assessment: 10/16/17 11:03 WITHDRAWAL SX Plan: CONTINUE DETOX
[2017-10-16] MEDS ORDERED: ALBUTEROL SO4 18 GM HFA INHALER IH PRN (11:09)
[2017-10-16 11:20] LABS: ALBUMIN 3.5 g/dl (3.4-5.0); ANION GAP 10 (8-16); BILIRUBIN,TOTAL 0.4 mg/dL (0.2-1.0); BLOOD UREA NITROGEN 15 mg/dL (7-18); CALCIUM 8.6 mg/dL (8.5-10.1); CHLORIDE 106 mmol/L (98-107); CO2 25 mmol/L (21-32); CREATININE 0.7 mg/dL (0.7-1.3); GLUCOSE,RANDOM 92 mg/dL (74-106); POTASSIUM 4.5 mmol/L (3.5-5.1); SGOT/AST 19 U/L (15-37); SGPT/ALT 28 U/L (12-78); SODIUM 141 mmol/L (136-145); TOT PROT 6.7 g/dl (6.4-8.2)
[2017-10-16 11:21] LABS: ALK PHOS 97 U/L (45-117)
[2017-10-16 17:21] VITALS: BP 119/79; PULSE 82; TEMP 97.5
[2017-10-16] MEDS: MAG HYDROX/AL HYDROX/SIMETH 30 ML UNIT-DOSE CUP PO PRN (17:35)
[2017-10-16 18:28] LABS: URINE APPEARANCE CLEAR; URINE BILIRUBIN NEGATIVE (<2.0 mg/dL); URINE COLOR STRAW; URINE GLUCOSE (UA) NEGATIVE (NEGATIVE); URINE KETONE NEGATIVE (NEGATIVE); URINE LEUK ESTERASE NEGATIVE (NEGATIVE); URINE NITRITE NEGATIVE (NEGATIVE); URINE PROTEIN NEGATIVE (NEGATIVE); URINE UROBILINOGEN NEGATIVE mg/dL (0.2-1.0)
--- NOTE | 2017-10-16 19:53 | PN ---
[facility] Progress Note Note: Patient requested to leave AMA. Patient reports he needs to return to work tomorrow. Denies suicidal / homicidal ideation. Patient advised of the risk of not completing treatment which include . Patient advise if symptoms worsen to seek medical attention at local ED or urgent care. Follow up with PMD upon d/ c. Patient verbalizes understanding.
--- NOTE | 2017-10-16 19:56 | DS ---
[facility] Detox Discharge Summary Admission Date: 10/15/17 Discharge Date: 10/16/17 - History Present History: Alcohol Dependence, Cannabis Dependence, Cocaine Dependence, Opioid Dependence Additional Comments: Patient requested to leave AMA. No suicidal / homicidal ideation. Patient advised on the risk of not completing treatment which include . Patient advise if worsening symptoms are present to seek medical attention local ED, urgent care or PMD. Patient verbalizes understanding. Pertinent Past History: Vital Signs Temperature 97.5 F L 10/16/17 17:20 Pulse Rate 82 10/16/17 17:20 Respiratory Rate 18 10/16/17 17:20 Blood Pressure 119/79 10/16/17 17:20 O2 Sat by Pulse Oximetry (%) Laboratory Last Values WBC 8.1 K/mm3 (4.0-10.0) D 10/16/17 08:50 RBC 5.12 M/mm3 (4.00-5.60) 10/16/17 08:50 Hgb 15.1 GM/dL (11.7-16.9) 10/16/17 08:50 Hct 44.4 % (35.4-49) 10/16/17 08:50 MCV 86.7 fl (80-96) 10/16/17 08:50 MCH 29.5 pg (25.7-33.7) 10/16/17 08:50 MCHC 34.0 g/dl (32.0-35.9) 10/16/17 08:50 RDW 14.7 % (11.9-15.9) D 10/16/17 08:50 Plt Count 199 K/MM3 (134-434) 10/16/17 08:50 MPV 11.2 fl (7.5-11.1) H 10/16/17 08:50 Sodium 141 mmol/L (136-145) 10/16/17 08:50 Potassium 4.5 mmol/L (3.5-5.1) 10/16/17 08:50 Chloride 106 mmol/L (98-107) 10/16/17 08:50 Carbon Dioxide 25 mmol/L (21-32) 10/16/17 08:50 Anion Gap 10 (8-16) 10/16/17 08:50 BUN 15 mg/dL (7-18) D 10/16/17 08:50 Creatinine 0.7 mg/dL (0.7-1.3) 10/16/17 08:50 Creat Clearance w eGFR > 60 (>60) 10/16/17 08:50 Random Glucose 92 mg/dL (74-106) 10/16/17 08:50 Calcium 8.6 mg/dL (8.5-10.1) 10/16/17 08:50 Total Bilirubin 0.4 mg/dL (0.2-1.0) D 10/16/17 08:50 AST 19 U/L (15-37) D 10/16/17 08:50 ALT 28 U/L (12-78) D 10/16/17 08:50 Alkaline Phosphatase 97 U/L (45-117) D 10/16/17 08:50 Total Protein 6.7 g/dl (6.4-8.2) 10/16/17 08:50 Albumin 3.5 g/dl (3.4-5.0) 10/16/17 08:50 Urine Color Straw 10/16/17 14:40 Urine Appearance Clear 10/16/17 14:40 Urine pH 8.0 (5.0-8.0) D 10/16/17 14:40 Ur Specific [place] 1.006 (1.001-1.035) 10/16/17 14:40 Urine Protein Negative (NEGATIVE) 10/16/17 14:40 Urine Glucose (UA) Negative (NEGATIVE) 10/16/17 14:40 Urine Ketones Negative (NEGATIVE) 10/16/17 14:40 Urine Blood Negative (NEGATIVE) 10/16/17 14:40 Urine Nitrite Negative (NEGATIVE) 10/16/17 14:40 Urine Bilirubin Negative (<2.0 mg/dL) 10/16/17 14:40 Urine Urobilinogen Negative mg/dL (0.2-1.0) 10/16/17 14:40 Ur Leukocyte Esterase Negative (NEGATIVE) 10/16/17 14:40 RPR Titer Nonreactive (NONREACTIVE) 10/16/17 08:50 - Physical Exam Results Vital Signs: Vital Signs Temperature 97.5 F L 10/16/17 17:20 Pulse Rate 82 10/16/17 17:20 Respiratory Rate 18 10/16/17 17:20 Blood Pressure 119/79 10/16/17 17:20 O2 Sat by Pulse Oximetry (%) - Treatment Patient has Accepted a Rehab Referral to: Follow up with outpatient programs - Medication Discharge Medications: Ambulatory Orders NK [No Known Home Medication] 12/08/15 - Diagnosis (1) Alcohol dependence with uncomplicated withdrawal Current Visit: Yes Status: Acute (2) Cocaine dependence Current Visit: Yes Status: Acute Qualifiers: Substance use status: in withdrawal Qualified Code(s): F14.23 - Cocaine dependence with withdrawal (3) Nicotine dependence Current Visit: Yes Status: Acute Qualifiers: Nicotine product type: cigarettes Substance use status: in withdrawal Qualified Code(s): F17.213 - Nicotine dependence, cigarettes, with withdrawal (4) Opioid dependence with withdrawal Current Visit: Yes Status: Acute (5) Asthma Current Visit: Yes Status: Chronic (6) COPD (chronic obstructive pulmonary disease) Current Visit: Yes Status: Chronic Qualifiers: COPD type: emphysema Emphysema type: unilateral Qualified Code(s): J43.0 - Unilateral pulmonary emphysema [MacLeod's syndrome] - AMA Did Patient Leave Against Medical Advice: Yes
[2017-10-17] MEDS ORDERED: chlordiazePOXIDE 5 MG CAPSULE PO SCH (05:00)
[2017-10-17] MEDS ORDERED: METHADONE HCL 5 MG TABLET (FOR DETOX USE ONLY) PO SCH (10:00)
[2017-10-18] MEDS ORDERED: chlordiazePOXIDE HCL 10 MG CAPSULE PO SCH (05:00)
[2017-10-19] MEDS ORDERED: METHADONE HCL 10 MG TABLET (FOR DETOX USE ONLY) PO SCH (10:00)
[2017-10-20] MEDS ORDERED: METHADONE HCL 10 MG TABLET (FOR DETOX USE ONLY) PO SCH (06:00)
== END 2017-10-16 19:57 | disposition left against medical advice (07) | DRG 770 ==
LOC: YASAS 01:29 → Y3N 01:34
PROVIDERS: ADMIT Family Medicine Addiction Medicine; ATTEND Family Medicine Addiction Medicine
PROC: HZ2ZZZZ Detoxification Services for Substance Abuse Treatment (ICD-10-PCS; principal; 2017-10-15)
DX: F11.23 Opioid dependence with withdrawal (principal); F14.20 Cocaine dependence, uncomplicated; F17.213 Nicotine dependence, cigarettes, with withdrawal; F19.280 Other psychoactive substance dependence with psychoactive substance-induced anxiety disorder; J45.909 Unspecified asthma, uncomplicated; J43.0 Unilateral pulmonary emphysema [MacLeod's syndrome]; R00.0 Tachycardia, unspecified; Z88.1 Allergy status to other antibiotic agents
CPT/HCPCS: 36415; 80053; 81003; 85027; 86593; 93005; 93010